=== PATIENT | male | born 1965 | race Caucasian/White ===

== ENCOUNTER → 2017-07-03 | Outpatient (CLI) | payer BC | LOC: M.RAD 13:36 | DX: R07.9 Chest pain, unspecified (principal) ==

== ENCOUNTER → 2020-10-19 | Outpatient (CLI) | payer OTHER | LOC: M.CT 13:37 | PROVIDERS: ATTEND Family Medicine | DX: Z13.6 Encounter for screening for cardiovascular disorders (principal); I25.10 Atherosclerotic heart disease of native coronary artery without angina pectoris ==